=== PATIENT | female | born 1970 | race Caucasian/White ===

== ENCOUNTER 2016-09-21 17:27 | Inpatient (IN) | payer OTHER ==
[2016-09-21] VITALS (7 sets, daily range): BP systolic 82–99; BP diastolic 57–66; PULSE 82–109; RESP 16–20; O2SAT 97–100
[~2016-09-21] VITALS: Ht 154.9 cm; Wt 77.1 kg
[2016-09-21] MEDS ORDERED: 0.9% Sodium Chloride 1,000 ML IV ONE ×2 (18:05→19:10)
--- NOTE | 2016-09-21 18:05 | ED.REPORT ---
HPI-Rash / Abscess Date of Service Sep 21, 2016 ED Provider: Jalil Milan MD Pt is a 45 y.o. female who presents to the ED c/o fever (subjective) and chills onset 6 days ago. Pt states she was admitted to [place] last week for what she states were "non-medical reasons" and while there she was dx with cellulitis to her right chest wall and was discharged with a 7 day course of Bactrim. She states that she finished her course of Bactrim yesterday. She claims that for the first 2 days of taking the Bactrim she was outside in the sun and she began to feel ill. She believed that she had heat stroke from being in the sun while taking the antibiotic. She reports associated shaking, headache , myalgias, congestion, intermittent SOB, diaphoresis, nausea, vomiting, dizziness, weakness, decreased PO intake, as well as abdominal pain which she describes as "all my organs are hurting". She denies throat pain, diarrhea, and dysuria. She denies recent drug use and being a current smoker. Nursing Notes Stated Complaint: DIZZY, FLU-LIKE SYMPTOMS, BODY ACHES, HEADACHES Chief Complaint: Skin Rash/Abscess Nursing Notes Reviewed: Yes (Favorite Word[employer], meds not reconciled) Allergies: Coded Allergies: Penicillins (Verified Allergy, Unknown, 09/21/16) Unable to Obtain Active Prescriptions or Reported Meds General Time Seen by MD: 18:04 Chief Complaint Other (Fever and Chills) Hx Obtained From: Patient Arrived By: Walk-in Onset Occurred: 6 days ago Context of Onset: New medication (Bactrim) Symptom Duration: Since onset Location: : Generalized Quality: Painful Severity: Current: Moderate Recent Healthcare: Recent hospitalization Similar Sx Previous: No Past Medical History Past Medical History Notes: Patient admitted to [facility] last week "Not for any medical reasons" (presume psychiatric care - patient would not say) At time of DC there was a concern for cellulits along R chest wall - rx w/Bactrim which patient finished 2 days ago Past Medical History h/o substance abuse per EMR (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 Female: Denies: Dysuria Neurologic: Reports: Dizziness, Headache (intermitant), Lightheaded, Shaking, Weakness Physical Exam Initial Vital Signs Vital Signs (First) Date Time Temp Pulse Resp B/P Pulse Ox O2 Delivery O2 Flow Rate FiO2 09/21/16 17:32 36.9 109 20 96/65 97 Room Air Initial VS: Reviewed, Vital signs abnormal Head / Eyes: Atraumatic, Normocephalic Extremities: Vascular intact, Neuro intact Neurologic: Alert, Oriented, Nonfocal Psychiatric: Mood/affect normal, Behavior normal, Normal thought content General/Constitutional: Awake, Alert, Well developed, Well nourished, Not toxic appearing Fatigued Skin: Atraumatic, Color NL, No rash, Warm, Intact Color / Condition: Positive: Diaphoresis present Rash / Lesion Notes: No current signs of infection of rash, right chest wall cellulitis appears to have resolved. Rash / Lesion Pattern: Negative: Track leonardo Respiratory / Chest: Atraumatic, Breath sounds NL, Breath sounds = bilat, No respiratory distress Cardiovascular: Regular rhythm, Heart sounds NL, No murmurs, Peripheral circulation NL Heart Rate / Rhythm: Positive: Tachycardia Neck: Atraumatic, Supple, No meningismus Abdomen: Atraumatic, Soft, Non-tender, No guarding, No rebound, No distention Interpretation & Diagnostics Lab Results Interpretation Result Diagram: 09/21/16 19009/21/16 190 Test 09/21/16 19:00 09/21/16 20:23 White Blood Count 10.8th/mm3 (3.8-10.1) Red Blood Count 3.91mil/mm3 (3.90-5.20) Hemoglobin 12.1g/dL (12.0-15.6) Hematocrit 36.1% (35.0-46.0) Mean Corpuscular Volume 92.3fL (81-100) Mean Corpuscular Hemoglobin 30.9pg (27.0-35.0) Mean Corpuscular Hemoglobin Concent 33.5% (32.0-37.0) Red Cell Distribution Width 12.2% (12.3-15.4) Platelet Count 233bil/L (150-400) Neutrophils (%) (Auto) 81.1% (40-74) Lymphocytes (%) (Auto) 9.4% (14-46) Monocytes (%) (Auto) 7.9% (4-12) Eosinophils (%) (Auto) 1.0% (0-5) Basophils (%) (Auto) 0.2% (0-3) Sodium Level 128mEq/L (134-144) Potassium Level 3.4mEq/L (3.5-5.2) Chloride Level 90mEq/L (97-108) Carbon Dioxide Level 21mmol/L (18-29) Blood Urea Nitrogen 33mg/dL (6-24) Creatinine 3.41mg/dL (0.57-1.00) Estimat Glomerular Filtration Rate 21mL/min (>59) Glucose Level 126mg/dL (60-99) Lactic Acid Level 0.9mmol/L (0.4-2.0) Calcium Level 8.4mg/dL (8.5-10.1) Total Bilirubin 0.6mg/dL (0.0-1.2) Aspartate Amino Transf (AST/SGOT) 36U/L (0-50) Alanine Aminotransferase (ALT/SGPT) 21U/L (0-32) Alkaline Phosphatase 149U/L (25-150) Total Protein 7.5g/dL (6.4-8.4) Albumin 3.2g/dL (3.4-5.0) Human Chorionic Gonadotropin, Qual Negative (Negative) Urine Color Yellow (YELLOW) Urine Appearance Clear (CLEAR,HAZY) Urine pH 5.5 (5.0-8.0) Urine Specific [place] 1.025 (1.003-1.035) Urine Protein 100mg/dL (NEG,TRACE) Urine Glucose (UA) Negativemg/dL (NEGATIVE) Urine Ketones Tracemg/dL (NEGATIVE) Urine Occult Blood Large (NEGATIVE) Urine Nitrite Negative (NEGATIVE) Urine Bilirubin Negative (NEGATIVE) Urine Urobilinogen 2.0mg/dL (NORMAL) Urine Leukocyte Esterase Small (NEGATIVE) Urine RBC 3-10/hpf (0-2) Urine WBC 0-5/hpf (0-5) Urine Epithelial Cells Few/hpf (NONE-MOD) Urine Crystals None seen (NONE SEEN) Urine Bacteria Few/hpf (NONE-FEW) Urine Hyaline Casts None/lpf (NONE) Urine Granular Casts None seen (NONE SEEN) Urine Waxy Casts None seen (NONE SEEN) Urine Red Blood Cell Casts None seen (NONE SEEN) Urine White Blood Cell Casts None seen (NONE SEEN) Urine Mucus None seen (None Seen) Urine Trichomonas None seen (NONE SEEN) Urine Yeast None (NONE SEEN) Urinalysis Comment None Urine Culture Reflexed Indicated Lab Results Interpretation: CBC normal CMP mild hyponatremia, mild hypokalemia, significantly elevated creatinine - possibly secondary to recent Bactrim exposure (KRISTINA) ECG Interpretation Time: 19:43 Interpreted by: ED physician Normal ECG Interpretation: Normal rate (82), Normal sinus rhythm, No acute ischemic changes X-Ray Chest Interpretation Chest Xray Interpretation: IMPRESSION: No acute cardiopulmonary disease process. Dictated by: Belkys Mukherjee MD, PhD on 09/21/2016 at 18:43 Approved by: Belkys Mukherjee MD, PhD on 09/21/2016 at 18:43 Re-Eval/Medical Decision Med Decision/Clinical Course This is a 45-year-old female who had a small cutaneous abscess of the right chest wall drained 1-2 weeks ago, and then he was admitted for suicidal ideation and alcohol intoxication at [place] at which time she only had residual trace cellulitis-and was treated with Bactrim. She notes she is out in the sun a few days ago, and then became worried about photosensitivity to the Bactrim-I she developed diffuse body aches, sweats, and is just felt lousy ever since. However symptoms have persisted-and even worsened. She reports that "her entire body hurts" she is having sweats, feels cold, possible subjective fever. She denies shortness of breath, denies abdominal pain, denies dysuria. The the redness she had that prompted the initial antibiotics has completely resolved. (The patient does not currently have a rash or skin finding at all) Patient is diaphoretic, fatigued, mildly tachycardic, mildly hypotensive. She has no meningismus. Lungs clear, she is not tachypneic or dyspneic. No heart murmurs are appreciated. A previous visit indicated at track leonardo, I do not find any visible track leonardo today. Abdomen soft nontender. Skin has no rashes, there is a healed scar over the right chest where the abscess was drained previously. Neurologically she is awake, alert, appropriate. She is mentating normally, she has no findings of meningismus, she is not clinically appear to be in withdrawal. An IV was placed, labs are drawn. The patient received IV fluids and the pressure did improve. Labwork was notable for an elevated creatinine. This may be in response to the Bactrim as well and represent acute kidney injury. Even after 2 L of fluid the patient still had a marginal blood pressure in the low 90s, so the plan at this time is admission. I have not been able to find a clear focus of new infection. Given the combination of subjective fever, hypotension, diaphoresis the patient is being empirically covered and I have given ceftriaxone, and rather than vancomycin and have chosen clindamycin given her current renal insufficiency. Case has been discussed with the hospitalist and the patient being admitted for continued management. Source of Hx: Old records Re-Evaluation/Progress #1: Time of Eval: 19:43 Re-Evaluation/Progress Note: Pt rechecked. Medications just started. Pt's BP is 99 Re-Evaluation/Progress #2: Time of Eval: 21:14 Re-Evaluation/Progress Note: Pt rechecked. Pt is still hypotensive. Discussed need for admit, pt understands and agree with plan. Consultation : Referral / Consult Name: Avinash Chance MD Consulted With: Hospitalist Call Returned at: 21:31 Ruling Technician: Will see patient, Agrees with eval, Agrees with plan, Accepts admit Note: Discussed pt condition, accepts admit. Differential Diagnosis: Negative: Abscess, Allergic reaction, Cellulitis, Gangrene, Henoch-Schonlein purpura, Kawasaki's disease, Shingles, herpes zoster , Skin abscess Counseled Regarding: Diagnosis, Lab results, Need for admission Discharge & Departure Impression: Primary Impression: Acute renal insufficiency Additional Impression: Hypotension Hypotension type: unspecified hypotension type Qualified Code: I95.9 - Hypotension, unspecified Disposition: ADMITTED TO HOSPITAL Discharge Condition All VS Reviewed: Yes Condition: Improved Referrals: NOPCP (PCP) Scribe Attestation Portions of this note were transcribed by Kim Hernadez. IDr. Milan personally performed the history, physical exam and medical decision-making; I reviewed and confirmed the accuracy of the information in the transcribed note. Signed by: Jann Trinh, 09/21/16 and 2135. Jalil Milan MD Sep 21, 2016 18:05 KIM HERNADEZ Sep 21, 2016 18:11
--- NOTE | 2016-09-21 18:44 | DRSVH ---
PROCEDURE: X-RAY CHEST ONE VIEW, PORTABLE ([id number]) INDICATIONS: fever TECHNIQUE: One view of the chest was acquired. COMPARISON: None. FINDINGS: Surgical changes and devices: None. Lungs and pleura: No pleural effusions or pneumothorax. Lungs are clear. Mediastinum: Mediastinal contours appear normal. Heart size is normal. Bones and chest wall: No suspicious bony lesions. Overlying soft tissues appear unremarkable. IMPRESSION: No acute cardiopulmonary disease process. Dictated by: Belkys Mukherjee MD, PhD on 09/21/2016 at 18:43 Approved by: Belkys Mukherjee MD, PhD on 09/21/2016 at 18:43
[2016-09-21] MEDS ORDERED: Ondansetron 2 mg/mL 2 mL Inj IVPUSH ONE (19:10)
[2016-09-21] MEDS ORDERED: HYDROmorphone 0.5 mg/0.5 mL iSecure Syringe IVPUSH ONE (19:10)
[2016-09-21 19:22] LABS: BASOPHILS % (AUTO) 0.2 % (0-3); MONOCYTES % (AUTO) 7.9 % (4-12); Mean Corpuscular Hemoglobin 30.9 pg (27.0-35.0); Mean Corpuscular Volume 92.3 fL (81-100); NEUTROPHILS % (AUTO) 81.1 % (40-74); Platelet Count 233 bil/L (150-400)
[2016-09-21 20:54] LABS: APPEARANCE,URINE CLEAR (CLEAR,HAZY); COLOR,URINE YELLOW (YELLOW); OCCULT BLOOD,URINE LARGE (NEGATIVE); PH,URINE 5.5 (5.0-8.0)
[2016-09-21] MEDS ORDERED: Clindamycin Inj 900 MG in IV Premix 1 EACH IV ONE (21:15)
[2016-09-21] MEDS ORDERED: cefTRIAXone Inj 2,000 MG in Dextrose 5% Minibag Plus 50 ML IV ONE (21:15)
[2016-09-21] MEDS ORDERED: Alum-Mag Hydrox-Simeth 30 mL Suspension PO PRN ×2 (22:20→22:40)
[2016-09-21] MEDS ORDERED: Ondansetron 2 mg/mL 2 mL Inj IVPUSH PRN ×2 (22:20→22:40)
[2016-09-21] MEDS ORDERED: 0.9% Sodium Chloride 1,000 ML IV SCH (22:20)
[2016-09-21] MEDS ORDERED: Polyethylene Glycol (PEG) 17 Gm Powder PO PRN (22:40)
[2016-09-21] MEDS: 0.9% Sodium Chloride 1,000 ML IV SCH (23:25)
[2016-09-21] MEDS: Sodium Chloride LOK Flush 10 mL Syringe IVFLUSH SCH (23:25)
--- NOTE | 2016-09-21 23:40 | NUR ---
Admission Pt arrived to room 3021 at 2300. Pt was alert and oriented x3 on arrival and was conversing in full sentences. Pt was oriented to room, call light, bed and policies. Pt complaint of head ache as well as neck and shoulder pain. Pt was provided hot pad. Pt reported taking no prescription medications at home.
[2016-09-22] VITALS (7 sets, daily range): BP systolic 84–120; BP diastolic 51–71; PULSE 85–111; RESP 16–20; O2SAT 95–99
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
[2016-09-22] MEDS: Heparin 5,000 Unit/mL Inj SUBQ SCH ×3 (01:50→16:26)
[2016-09-22] MEDS ORDERED: diphenhydrAMINE 25 mg Capsule PO ONE (02:05)
[2016-09-22 06:55] LABS: BASOPHILS % (AUTO) 0.1 % (0-3); EOSINOPHILS % (AUTO) 1.5 % (0-5); MONOCYTES % (AUTO) 8.2 % (4-12); Mean Corpuscular Volume 92.2 fL (81-100); NEUTROPHILS % (AUTO) 82.2 % (40-74); Platelet Count 184 bil/L (150-400)
[2016-09-22] MEDS: Sodium Chloride LOK Flush 10 mL Syringe IVFLUSH SCH ×3 (08:17→19:51)
[2016-09-22] MEDS: 0.9% Sodium Chloride 1,000 ML IV SCH ×3 (08:36→19:52)
--- NOTE | 2016-09-22 09:45 | DRSVH ---
PROCEDURE: CT KUB ([id number]) INDICATIONS: KRISTINA TECHNIQUE: Noncontrast 5 mm thick sections acquired from the diaphragms to the symphysis. 5 mm thick coronal an d sagittal reformats were then performed. For radiation dose reduction, the following was used: aut omated exposure control, adjustment of mA and/or kV according to patient size. COMPARISON: None. FINDINGS: Image quality: Excellent. Lung bases: There is trace atelectasis and trace bilateral low-density effusions. Urinary system: Both kidneys are normal in size. No kidney stones. No hydronephrosis. There is mil d perinephric fat stranding. Both ureters appear non-dilated throughout their expected courses. Blad cyrus wall thickness is normal; no calcified uterus and ovaries are grossly unremarkable. bladder stone s. Other solid organs: Liver and spleen are normal in size. The gallbladder is unremarkable. A 12 mm di ameter calcified stone is present in the cystic duct (series 2, image 24). Pancreas is normal in cont ours. No adrenal nodules. Peritoneum and bowel: Unenhanced bowel loops demonstrate normal wall thickness and caliber. The appe ndix is thin walled and gas filled. No free fluid or air. Nodes and vessels: No retroperitoneal or mesenteric adenopathy by size criteria. Aorta and inferior vena cava are normal in caliber. Abdominal wall: No ventral hernias. Pelvis: No free pelvic fluid. No inguinal hernias or adenopathy. Bones: No suspicious bony lesions. No vertebral body compression fractures. IMPRESSION: 1. No hydronephrosis, nephrolithiasis, hydroureter, or ureterolithiasis. 2. Mild bilateral perinephric fat stranding. 3. 12 mm calcified stone within the cystic duct. No findings to suggest acute cholecystitis or choled ocholithiasis. 4. Trace bilateral low-density effusions and atelectasis. Dictated by: Ame Daley M.D. on 09/22/2016 at 9:38 Approved by: Ame Daley M.D. on 09/22/2016 at 9:44
--- NOTE | 2016-09-22 09:51 | DRSVH ---
PROCEDURE: US RETROPERITONEAL SONOGRAM ([id number]) INDICATIONS: Acute kidney failure TECHNIQUE: Real-time scanning was performed of the kidneys and bladder, with image documentation. COMPARISON: None. FINDINGS: Kidneys: Kidneys are normal in size. Right kidney measures 12.3 cm long; left kidney measures 13.1 cm long. Right renal cortical thickness is 2.2 cm; left renal cortical thickness is 1.4 cm. Renal c ortical echotexture is normal. No hydronephrosis or nephrolithiasis. No suspicious solid mass lesio ns. Bladder: Pre-void bladder volume is 67 mL. Post-void residual is 13 mL. Pre-void images demonstrat e no intraluminal masses or stones. On pre-void images, bilateral ureteral jets are noted with color Doppler interrogation. (Of note, ureteral jets may not be detectable in up to 25% of cases due to i nsufficient differences in specific gravity between ureteral and bladder urine). Miscellaneous: No free pelvic fluid. IMPRESSION: Normal exam. Dictated by: Rajat GARG Interpreted: Cory Kaur MD on 09/22/2016 at 9:50 Transcribed by: DANIAL on 09/22/2016 at 9:50 Approved by: Cory Kaur M.D. on 09/22/2016 at 10:52
[2016-09-22] MEDS ORDERED: cefTRIAXone Inj 1,000 MG in Dextrose 5% Minibag Plus 50 ML IV SCH (10:10)
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
--- NOTE | 2016-09-22 13:39 | NUR ---
HOLDEN Pt c/o HOLDEN today, rating between -01/08. PRN Oxycodone 5mg effective for this. Pt has denied any nausea, tolerating Renal diet now. Plan of care reviewed with pt, calm and coop with care. Cont to monitor.
--- NOTE | 2016-09-22 15:47 | NUR ---
SW - Brief Note Data: Pt is a 45 y/o female admitted 09/21/16 for acute renal insufficiency, hypotension per H&P. Insurance is coordinated care and no PCP is not . Pt is not listed. Pt is homeless and per H&P had a recent suicide attempt earlier this month. SW met with pt at bedside to discuss discharge planning. Pt denied any current or past suicidal ideation and states that the past suicide attempt was actually a misunderstanding. Pt stated that she does not want to answer any questions while her aunt Chey is in the room. SW offered to assist with PCP appt at residency [facility] and pt accepted. SW contacted [facility] specialist to request that they follow up in making this PCP appt. Pt to discharge back to homelessness when medically stable. SW will continue to follow for needs. Assessment: Pt who is homeless and independent at baseline. Plan: Pt to discharge back to homelessness when medically stable. SW will continue to follow for needs. ESHA Geller
--- NOTE | 2016-09-22 16:07 | DRSVH ---
[facility] [address] [place] [address] Echocardiogram Report Name: ESTEE LLAMAS te: 09/22/2016 Height: 61 in Hospital Exam Location: [facility] Weight: 170 lb Gender: Female BSA: 1.8 m2 : 1970 Age: 45 yrs BP: 109/69 mmHg Reason For Study: Endocarditis Ordering Physician: HOSPITALIST [facility] Performed By: Ignacio Peres Referring Physician: Yeyo Kim Interpretation Summary The ejection fraction is estimated to be 60-65%. There are no other obvious focal wall motion abnormalities. The right ventricular systolic pressure is estimated at 39 mmHg assuming a right atrial pressure of 8 mm Hg. There is no significant valvular heart disease. Procedure: A two-dimensional transthoracic echocardiogram with color flow and Doppler was performed. The study quality was technically adequate. There is no prior echocardiogram noted for this patient. The patient was in sinus tachycardia with heart rates between 106-118 bpm during the exam. Left Ventricle: The left ventricle is normal in size. The LVOT velocity is 1.48 m/s. The ejection fraction is estimated to be 60-65%. There are no other obvious focal wall motion abnormalities. Right Ventricle: The right ventricle is normal in size, thickness and function. Atria: Both atria are normal in size. There is no Doppler evidence for an interatrial shunt. Mitral Valve: The mitral valve is normal in structure and function. There is trace mitral regurgitation. Aortic Valve: The aortic valve is trileaflet. The aortic valve opens well. No aortic regurgitation is present. Tricuspid Valve: The tricuspid valve is not well visualized, but is grossly normal. There is trace tricuspid regurgitation. The right ventricular systolic pressure is estimated at 39 mmHg assuming a right atrial pressure of 8 mm Hg. Pulmonic Valve: The pulmonic valve leaflets are thin and pliable; valve motion is normal. There is no pulmonic valvular regurgitation. Great Vessels: The aortic root is normal size. The ascending aorta is normal in size. The aortic arch could not be visualized. The pulmonary artery is normal size. The IVC is dilated (diameter is greater than 2.1 cm) yet it collapses greater than 50% with a sniff. This suggests a right atrial pressure of 8 mm Hg. Pericardium/ Pleura There is no pericardial effusion. There is no pleural effusion. MMode/2D Measurements & Calculations LVIDd: 4.4 cm RA long axis LVOT diam LVIDs: 3.2 cm LA A2 area: 20.9 cm FS: 26.9 % LA A4 area: 17.6 cm RA area AoV Opening EPSS: 0.31 cm LA length (vol): 5.6 cm IVSd: 0.77 cm LA vol: 55.8 ml : 17.2 cm Ao root diam LVPWd: 1.2 cm LA vol index RA vol : 49.2 ml asc Aorta RA Diam: 2.9 cm IVC diam: 1.6 cm : 27.9 mm2 LV hinson. diameter/BSA LV sys. diameter/BSA RVD1 (basal) RVD2 (mid) (cm/m^2): 2.5 (cm/m^2): 1.8 : 2.6 cm TAPSE: 2.1 cm Doppler Measurements & Calculations Ao V2 max MV E max josemanuel MV E/A: 1.1 TR max josemanuel : 190.7 cm/sec : 105.6 cm/sec Med Peak E' Josemanuel : 278.2 cm/sec Ao max PG MV A max josemanuel TR max PG : 14.5 mmHg : 93.6 cm/sec E/E' med: 7.9 : 31.0 mmHg Ao mean PG MV P1/2t: 36.2 msec Lat Peak E' Josemanuel PA V2 max : 97.6 cm/sec LVOT Max Josemanuel E/E' lat: 11.2 PA mean PG : 148.7 cm/sec E/e' average: 9.5 HENRRY(I,D): 2.6 cm Pulm A Revs Dur PA Accel Time sev ratio : 0.07 sec MV A dur: 0.08 sec MV dec time MV P1/2t max josemanuel Ao V2 mean LV V1 max PG : 0.13 sec : 141.4 cm/sec Ao V2 VTI: 27.2 cm LV V1 VTI MVA(P1/2t): 6.1 cm2 : 23.2 cm HENRRY(V,D): 2.4 cm2 PA V2 mean HENRRY indexed to BSA Pulm A Revs Dur - MV : 73.5 cm/sec (cm^2/m^2): 1.5 A Dur: 0.02 msec Electronically signed by: Adam Baez on Reading Physician:09/22/2016 04:06 PM
--- NOTE | 2016-09-22 16:29 | NUR ---
Fever Pt. had fever x1 this afternoon 38.4. Dr. Mccormack was notified via cookpaging text. Pt. had one set of blood culture drawn 09/21/16, result is still pending.
[2016-09-22 18:44] LABS: APPEARANCE,URINE CLEAR (CLEAR,HAZY); COLOR,URINE YELLOW (YELLOW); PH,URINE 5.5 (5.0-8.0)
[2016-09-22 18:45] LABS: OCCULT BLOOD,URINE LARGE (NEGATIVE)
[2016-09-23] VITALS (9 sets, daily range): BP systolic 95–146; BP diastolic 61–87; PULSE 83–106; RESP 18–20; O2SAT 96–99
[2016-09-23] MEDS: Heparin 5,000 Unit/mL Inj SUBQ SCH ×3 (00:15→16:49)
[2016-09-23] MEDS: 0.9% Sodium Chloride 1,000 ML IV SCH ×3 (01:09→17:06)
[2016-09-23 03:08] LABS: Hepatitis A Antibody IgM Negative (Negative); Hepatitis B Core Antibody IgM Negative (Negative)
[2016-09-23 06:53] LABS: BASOPHILS % (AUTO) 0.3 % (0-3); EOSINOPHILS % (AUTO) 2.2 % (0-5); MONOCYTES % (AUTO) 10.8 % (4-12); Mean Corpuscular Hemoglobin 30.3 pg (27.0-35.0); Mean Corpuscular Volume 94.8 fL (81-100); NEUTROPHILS % (AUTO) 61.6 % (40-74); Platelet Count 216 bil/L (150-400)
[2016-09-23 07:43] LABS: ERYTHROCYTE SEDIMENTATION RATE 60 mm/hr (0-32)
[2016-09-23] MEDS: Sodium Chloride LOK Flush 10 mL Syringe IVFLUSH SCH ×2 (09:04→16:30)
[2016-09-23] MEDS ORDERED: cefTRIAXone Inj 1,000 MG in Dextrose 5% Minibag Plus 50 ML IV SCH (10:00)
--- NOTE | 2016-09-23 12:08 | NUR ---
SW - Attempted Chemical Dependency Assessment SW checked in wit pt after noting history of methamphetamine use per H&P. SW inquired about current use and offered to refer to CDP from [facility] for further support. Pt stated that drug use was "way in the past" and she declined to discuss it further or any additional resources. ESHA Geller
--- NOTE | 2016-09-23 13:51 | PCM.PNNEPH ---
Subjective Date of Service Sep 23, 2016 Subjective The patient states that she continues to have left flank pain as well as neck pain. She did feel feverish overnight but denies any ongoing issues with nausea vomiting constipation diarrhea or abdominal pain. Exam Vital Signs Vital Sign - Last Date Time Temp Pulse Resp B/P Pulse Ox O2 Delivery O2 Flow Rate FiO2 09/23/16 10:21 37.2 93 20 98/63 99 Room Air Intake and Output 09/22/16 09/22/16 09/23/16 Cumulative From/Thru 15:00 23:00 07:00 09/21/16 17:32 - 09/23/16 06:59 Intake Total 1605 ml 2837 ml 2113 ml 8555 ml Output Total 300 ml 1500 ml 1800 ml Balance 1605 ml 2537 ml 613 ml 6755 ml Intake Oral 2436 ml 300 ml 2736 ml IV Total 1605 ml 401 ml 1813 ml 5819 ml Output Urine Total 300 ml 1500 ml 1800 ml # Voids 4 4 # Bowel Movements 0 0 0 Exam General: Middle-aged female appearing approximately stated age, Alert, Oriented X3, Cooperative, no acute distress Eyes: Pupils equal and round and reactive to light, EOMI. Anicteric sclerae, noninjected conjunctiva HENT: Normocephalic, atraumatic. External ears normal. Mild erythema noted peritonsillar with mild postnasal drainage noted, no cobblestoning mucosa mucous membranes moist without central cyanosis Neck: Neck supple with full range of motion and pain noted in passive and active range of motion testing, no nuchal rigidity Cardiovascular: Regular Rate/Rhythm, Normal S1, Normal S2, No Murmurs/Rubs/ Gallops Chest & Lungs: Clear to auscultation bilaterally with no crackles, wheezes, or rhonchi. Right shoulder has an healing erythematous area approximately 3 cm long consistent with prior I&D of a cutaneous abscess Abdomen: Non-tender, Non-distended, No masses, hypoactive bowel tones, Soft Musculoskeletal: Normal Range of Motion Extremities: No cyanosis/clubbing/edema bilaterally, pulses intact bilaterally in radial and dorsalis pedis Skin: Livedo reticularis noted in upper and lower extremities Neurological: Grossly Neurologically Intact without focal neurologic deficits Psych: Normal mood and affect : No Singh catheter in place Lab and Diagnostics Result Diagram: 09/23/16 0545 09/23/16 0545 Microbiology blood and urine cultures pending X-Rays, CTs and MRIs CXR unremarkable PROCEDURE: CT KUB ([id number]) INDICATIONS: KRISTINA IMPRESSION: 1. No hydronephrosis, nephrolithiasis, hydroureter, or ureterolithiasis. 2. Mild bilateral perinephric fat stranding. 3. 12 mm calcified stone within the cystic duct. No findings to suggest acute cholecystitis or choledocholithiasis. 4. Trace bilateral low-density effusions and atelectasis. Dictated by: Ame Daley M.D. on 09/22/2016 at 9:38 12-lead ECG NSR with rate of 82 Plan Impression 45-year-old female with past medical history remarkable for polysubstance abuse and recent subcutaneous abscess treated with 1 week of Bactrim presents with nausea vomiting, headaches, stiff neck, changes in vision. 1. Acute kidney injury 2. Possible pyelonephritis 3. Hematuria Plan: 1. Acute kidney injury - Creatinine at admission is approximately 3.41 improving - Retroperitoneal ultrasound was negative for any signs of obstruction or hydronephrosis in general - initial UA shows protein and blood and a few WBCs but appears to be contaminated with epithelial cells and bacteria - repeat UA again positive for blood - CT scan shows some mild perinephric fat stranding possibly consistent with a pyelonephritis partially treated with Bactrim - Urine eosinophil stain was negative - History of nausea and vomiting - DIAZ with reflex negative - HIV and hepatitis panel negative - Complements C3 and C4 negative - ANCA panel still pending - KRISTINA likely secondary to a combination of prerenal azotemia from dehydration secondary to nausea and vomiting and likely acute interstitial nephritis secondary to Bactrim, with an additional possibly of ischemic acute tubular necrosis given the low blood pressure at admission - Continue intravenous fluids normal saline at 100 ML's per hour - Daily monitoring 2. likely partially treated pyelonephritis - Possibly partially treated pyelonephritis with a week of Bactrim - CT scan shows possible mild perinephric fat stranding - Elevated white cell count at admission with elevated pro calcitonin consistent with infection - UA shows protein and blood and a few WBCs but appears to be contaminated with epithelial cells and bacteria - repeat UA again positive for blood, now also positive for mixed renata > 100, 000 colonies - Continue Rocephin which may also give an added benefit of covering any INFORMATION [employer]UDIT MANAGER involvement given history of headaches changes in vision and stiff neck - consider ID consult to discuss likely infection 3. Hematuria - Initially thought likely contamination with blood from menses cycle - Repeat UA remains positive for blood - DIAZ with reflex negative - HIV and hepatitis panel negative - Complements C3 and C4 negative - ANCA panel still pending - possible still due to pyelonephritis Newton Zhang DO Sep 23, 2016 13:51
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
--- NOTE | 2016-09-23 14:50 | NUR ---
Scheduled follow up appointment at [facility] for [facility] check in at 1020AM for 1030 appointment with . Updated DIALYSIS TECH
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
[2016-09-24] VITALS (7 sets, daily range): BP systolic 112–152; BP diastolic 71–80; PULSE 82–112; RESP 18–20; O2SAT 96–99
[2016-09-24] MEDS: Sodium Chloride LOK Flush 10 mL Syringe IVFLUSH SCH ×3 (00:07→17:01)
[2016-09-24] MEDS: Heparin 5,000 Unit/mL Inj SUBQ SCH ×3 (00:18→17:02)
[2016-09-24] MEDS: 0.9% Sodium Chloride 1,000 ML IV SCH ×2 (00:21→08:45)
--- NOTE | 2016-09-24 05:37 | NUR ---
Febrile: P: Pt febrile at the beginning of the shift with a TMAX of 38.4. I: Pt given 975 mg of PO Tylenol. E: Pt has remained afebrile. Last temperature taken this am was 37.1
[2016-09-24 07:00] LABS: BASOPHILS % (AUTO) 0.3 % (0-3); EOSINOPHILS % (AUTO) 1.7 % (0-5); MONOCYTES % (AUTO) 10.3 % (4-12); Mean Corpuscular Hemoglobin 30.2 pg (27.0-35.0); Mean Corpuscular Volume 95.1 fL (81-100); NEUTROPHILS % (AUTO) 66.9 % (40-74); Platelet Count 282 bil/L (150-400)
[2016-09-24] MEDS: cefTRIAXone Inj 2,000 MG in Dextrose 5% Minibag Plus 50 ML IV SCH (08:45)
--- NOTE | 2016-09-24 11:42 | PCM.PNNEPH ---
Subjective Date of Service Sep 24, 2016 Subjective Patient continues to do well. She denies any further problems of chest pain, shortness of breath, cough or wheezing. She denies any nausea or vomiting. Her blood pressures are better with ranging between 90 and 140. This morning her hemoglobin was 10.4, sodium 141, potassium 4.4, chloride 106, bicarbonate 18, BUN and creatinine were 13 and 1.19 respectively. C3 and C4 were both normal, her DANIEL was negative and her tests for hepatitis A, B, C, and HIV were all negative. Exam Vital Signs Vital Sign - Last Date Time Temp Pulse Resp B/P Pulse Ox O2 Delivery O2 Flow Rate FiO2 09/24/16 11:07 90 09/24/16 10:16 37.2 18 112/71 98 Room Air Intake and Output 09/23/16 09/23/16 09/24/16 Cumulative From/Thru 15:00 23:00 07:00 09/21/16 17:32 - 09/24/16 06:13 Intake Total 1508 ml 2142 ml 39919 ml Output Total 2900 ml 900 ml 5600 ml Balance -1392 ml 1242 ml 6605 ml Intake Oral 356 ml 400 ml 3492 ml IV Total 1152 ml 1742 ml 8713 ml Output Urine Total 2900 ml 900 ml 5600 ml # Voids 4 # Bowel Movements 0 Exam Neck is supple without adenopathy thyromegaly or jugular venous distention. Lungs are clear to auscultation. Heart was regular rhythmical rhythm with soft systolic murmur. Abdomen soft without any tenderness, rebound, guarding, masses , or hepatosplenomegaly. Extremities show any evidence of any clubbing cyanosis or edema. Skin turgor is good. Lab and Diagnostics Result Diagram: 09/24/16 0610 09/24/16 0610 Microbiology blood and urine cultures pending X-Rays, CTs and MRIs CXR unremarkable PROCEDURE: CT KUB ([id number]) INDICATIONS: KRISTINA IMPRESSION: 1. No hydronephrosis, nephrolithiasis, hydroureter, or ureterolithiasis. 2. Mild bilateral perinephric fat stranding. 3. 12 mm calcified stone within the cystic duct. No findings to suggest acute cholecystitis or choledocholithiasis. 4. Trace bilateral low-density effusions and atelectasis. Dictated by: Ame Daley M.D. on 09/22/2016 at 9:38 12-lead ECG NSR with rate of 82 Cardiac Echo Impressions Interpretation Summary The ejection fraction is estimated to be 60-65%. There are no other obvious focal wall motion abnormalities. The right ventricular systolic pressure is estimated at 39 mmHg assuming a right atrial pressure of 8 mm Hg. There is no significant valvular heart disease. Plan Impression Impression #1 acute kidney injury which is resolved #2 no evidence of hepatitis C Recommendations #1 I would like to stop her IV fluids. In light of her improving renal function we will sign off at this time. Should you have any questions or any problems between now and her discharge he started hesitate to contact us. Yeyo Kim DO Sep 24, 2016 11:42
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
--- NOTE | 2016-09-24 16:49 | NUR ---
Social Work - Readiness for Discharge Data: Pt is on day 3 of hospitalization for acute renal insufficiency, hypotension. EMR reviewed. Pt was discussed in morning rounds and is likely to discharge tomorrow, is up and independent in room. Pt has declined CD resources. Pt will discharge to homelessness. UR Specialist scheduled [facility] check in at 1020AM for 1030 appointment with . SW to follow up with pt tomorrow to provide appt time. No further needs assessed at this time. SW will continue to follow. Assessment: Pt who is homeless and is independent at baseline Plan: Pt likely to discharge tomorrow return to homelessness. SW to follow up with pt tomorrow to provide appt time. No further needs assessed at this time. SW will continue to follow. ESHA Geller
--- NOTE | 2016-09-24 17:52 | NUR ---
Fever Pt afebrile today, VSS. Denies pain. Independent in room, gait steady. Continues on IV abx. Uses call light to make needs known. Plan to d/c tomorrow.
[2016-09-25] MEDS: Heparin 5,000 Unit/mL Inj SUBQ SCH ×2 (00:33→09:29)
[2016-09-25] MEDS: Sodium Chloride LOK Flush 10 mL Syringe IVFLUSH SCH ×2 (00:33→09:30)
[2016-09-25 00:37] VITALS: O2SAT 99
[2016-09-25 05:07] VITALS: BP 138/78; PULSE 76; O2SAT 95
--- NOTE | 2016-09-25 05:11 | NUR ---
Headache Pt requested oxycodone and tylenol for headache. pt stated that headache seems to come back when she's running a fever. Temp at that time was 37.7, HR 110s, BP slightly elevated. Oxycodone and tylenol given; Headache down to 2/10, remained afebrile for the rest of the shift. independent in the room; gait steady. slept most of the night. able to make needs known.
[2016-09-25 08:15] LABS: BASOPHILS % (AUTO) 0.6 % (0-3); EOSINOPHILS % (AUTO) 2.8 % (0-5); MONOCYTES % (AUTO) 9.9 % (4-12); Mean Corpuscular Hemoglobin 30.7 pg (27.0-35.0); Mean Corpuscular Volume 94.4 fL (81-100); NEUTROPHILS % (AUTO) 59.5 % (40-74); Platelet Count 331 bil/L (150-400)
[2016-09-25 08:47] LABS: Magnesium 1.7 mg/dL (1.6-2.6)
[2016-09-25] MEDS: cefTRIAXone Inj 2,000 MG in Dextrose 5% Minibag Plus 50 ML IV SCH (09:29)
--- NOTE | 2016-09-25 10:53 | PCM.DIMED ---
Discharge Instructions Date of Service Sep 25, 2016 Dates of Hospitalization Sep 21, 2016 at 21:39 Discharge Diagnosis Discharge Diagnosis #. Acute Kidney Injury due to suspected AIN due to Bactrim and/or prerenal from sepsis, POA, Resolved #. Sepsis due to Suspected partially treated bilateral pyelonephritis , acute, poa,improved #. Initial Hypotension, POA, resolved #. Recent history of chest wall cellulitis/abscess, POA, improved. #. Hyponatremia, POA, initial level 128 Diet No restrictions Activity No restrictions Call your provider Fever or Chills, Shortness of breath, Bleeding, Chest pain, Vomitting, Excessive diarrhea, Weakness (unilateral) Patient Instructions You were hospitalized due to acute kidney injury due to AIN ( side effect of bactrim) and pyelonephritis ( kidney infection) . Please continue Keflex for 4 more days. Please avoid using Bactrim in the future . keep yourself hydrated. Please get a PCP and follow up. Initial Creatinine 3.18 and now at 0.82. Follow-up with PCP in: 1 week Miguel Mccormack MD Sep 25, 2016 10:53
[2016-09-25] MEDS ORDERED: CEPH-512 PO (10:54)
--- NOTE | 2016-09-25 12:40 | NUR ---
Discharge Pt discharged at this time, VSS, no complains of increased pain. All belongings gathered and returned to pt. Hard copy of new script given to pt to fill. IV D/Cd intact. Discharge packet printed and reviewed with pt and spouse. Pt declined offer of wheelchair, escorted from [facility] to the elevators, by this RN. Pt to be transported home in private vehicle driven by spouse.
[2016-09-25 13:10] LABS: Antiproteinase 3 (PR-3) Abs <3.5 U/mL (0.0-3.5); Perinuclear (P-ANCA) <1:20 titer (Neg:<1:20)
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
== END 2016-09-25 12:46 | disposition home or self-care (01) | DRG 683 ==
LOC: SED 17:27 → MPC 21:39
PROVIDERS: ADMIT Hospitalist; ATTEND Hospitalist
DX: N17.9 Acute kidney failure, unspecified (principal); E87.1 Hypo-osmolality and hyponatremia; N10 Acute pyelonephritis; F15.90 Other stimulant use, unspecified, uncomplicated; E86.0 Dehydration; E87.6 Hypokalemia; T37.0X5A Adverse effect of sulfonamides, initial encounter; Z88.0 Allergy status to penicillin; Z91.5 Personal history of self-harm; Z59.0 Homelessness